=== PATIENT | female | born 1980 | race Caucasian/White ===

== ENCOUNTER 2016-10-27 02:44 | Emergency (ER) | payer MEDICAID, OTHER ==
[~2016-10-27] VITALS: Ht 162.6 cm; Wt 89.0 kg
[~2016-10-27 02:44] MED LIST: ADVA250A INH; ALBU8I INH; FIORTAB4 PO; LORTA5 PO; SULF-154 PO
[2016-10-27 02:46] VITALS: BP 175/100; PULSE 114; RESP 16; TEMP 99; O2SAT 98
[2016-10-27] MEDS ORDERED: CYMB30CA PO (03:09)
[2016-10-27] MEDS ORDERED: SODIUM CHLORIDE 0.9% FLUSH 10 ML FLUSH IVF PRN (04:15)
[2016-10-27] MEDS ORDERED: SODIUM CHLOR 0.9% 1000 ML INJ 1,000 ML IV ONE (05:00)
[2016-10-27] MEDS ORDERED: ONDANSETRON HCL 4 MG/2 ML VIAL IV PUSH ONE (05:00)
[2016-10-27 05:19] LABS: AUTOMATED NEUTROPHIL # 5.9 TH/MM3 (1.8-7.7); BASOPHIL # 0.1 TH/MM3 (0-0.2); BASOPHIL % 1.3 % (0.0-2.0); EOSINOPHIL # 0.3 TH/MM3 (0-0.4); EOSINOPHIL % 2.8 % (0.0-4.0); HEMATOCRIT 37.2 % (35.0-46.0); HEMO FLAGS DIFF FINAL; LYMPH % 32.3 % (9.0-44.0); LYMPHOCYTE # 3.2 TH/MM3 (1.0-4.8); MEAN CELL VOLUME 91.4 FL (80.0-100.0); MEAN CORPUSCULAR HEMOGLOBIN 31.6 PG (27.0-34.0); MEAN CORPUSCULAR HGB CONC 34.5 % (32.0-36.0); MONO % 5.1 % (0.0-8.0); NEUT % 58.5 % (16.0-70.0); PLATELET COUNT 432 TH/MM3 (150-450); RED BLOOD COUNT 4.07 MIL/MM3 (4.00-5.30); RED CELL DISTRIBUTION WIDTH 13.2 % (11.6-17.2)
--- NOTE | 2016-10-27 05:29 | PD ---
HPI Chief Complaint: Chest Pain Time Seen by Provider: 04:53 Travel History International Travel<30 days: No Contact w/Intl Traveler<30days: No Traveled to known affect area: No History of Present Illness HPI 35-year-old female with history of asthma, presents to the ER today for several days history of epigastric and substernal burning pains, nausea, vomiting, vomiting up blood, and diarrhea. She denies any fevers or any other symptoms. She does not know any exacerbating or alleviating factors. Patient is concerned that she may have ruptured her esophagus from the vomiting. Modifying Factors: None Associated Signs & Symptoms: Nausea, vomiting, vomiting blood, substernal epigastric and chest pains Risk Factors: None PFSH Past Medical History Asthma: Yes Depression: Yes Diminished Hearing: No Respiratory: Yes (Asthma) ?: Not LMP: 10/27/16 : 2 Para: 2 Past Surgical History Other Surgery: Yes (BILATERAL SALINE BREAST IMPLANTS) Social History Alcohol Use: No Tobacco Use: No Substance Use: No Allergies-Medications (Allergen,Severity, Reaction): Coded Allergies: No Known Allergies (Verified , 08/27/12) Reported Meds & Prescriptions Reported Meds & Active Scripts Active Reported Cymbalta DR (Duloxetine HCl) 30 Mg Capdr 30 Mg PO DAILY Review of Systems Except as stated in HPI: all other systems reviewed are Neg Physical Exam Narrative GENERAL: Well-developed middle age female patient currently in mild distress. Awake and oriented 3. SKIN: Focused skin assessment warm/dry. HEAD: Atraumatic. Normocephalic. EYES: Pupils equal and round. No scleral icterus. No injection or drainage. ENT: No nasal bleeding or discharge. Mucous membranes pink and moist. NECK: Trachea midline. No JVD. CARDIOVASCULAR: Regular rate and rhythm. No murmur appreciated. RESPIRATORY: No accessory muscle use. Clear to auscultation. Breath sounds equal bilaterally. GASTROINTESTINAL: Abdomen soft, mild epigastric tenderness without guarding or rebound, nondistended. Hepatic and splenic margins not palpable. MUSCULOSKELETAL: No obvious deformities. No clubbing. No cyanosis. No edema. NEUROLOGICAL: Awake and alert. No obvious cranial nerve deficits. Motor grossly within normal limits. Normal speech. PSYCHIATRIC: Appropriate mood and affect; insight and judgment normal. Data Data Last Documented VS Vital Signs Date Time Temp Pulse Resp B/P Pulse Ox O2 Delivery O2 Flow Rate FiO2 7/29/17 02:46 99.0 114 16 175/100 98 Room Air Orders Electrocardiogram (10/27/16 04:15) Ckmb (Isoenzyme) Profile (10/27/16 04:15) Complete Blood Count With Diff (10/27/16 04:15) Comprehensive Metabolic Panel (10/27/16 04:15) Magnesium (Mg) (10/27/16 04:15) Prothrombin Time / Inr (Pt) (10/27/16 04:15) Act Partial Throm Time (Ptt) (10/27/16 04:15) Troponin I (10/27/16 04:15) Chest, Single Ap (10/27/16 04:15) Ecg Monitoring (10/27/16 04:15) Bilateral Bp Monitoring (10/27/16 04:15) Iv Access Insert/Monitor (10/27/16 04:15) Oximetry (10/27/16 04:15) Oxygen Administration (10/27/16 04:15) Sodium Chloride 0.9% Flush (Ns Flush) (10/27/16 04:15) Ed Urine Pregnancytest Poc (10/27/16 04:15) Sodium Chlor 0.9% 1000 Ml Inj (Ns 1000 M (10/27/16 05:00) Ondansetron Inj (Zofran Inj) (10/27/16 05:00) Acetaminophen (Tylenol) (10/27/16 05:30) Famotidine Inj (Pepcid Inj) (10/27/16 05:30) CKMB (10/27/16 05:00) CKMB% (10/27/16 05:00) Labs Laboratory Tests Test 10/27/16 05:00 White Blood Count 10.0 TH/MM3 Red Blood Count 4.07 MIL/MM3 Hemoglobin 12.9 GM/DL Hematocrit 37.2 % Mean Corpuscular Volume 91.4 FL Mean Corpuscular Hemoglobin 31.6 PG Mean Corpuscular Hemoglobin 34.5 % Concent Red Cell Distribution Width 13.2 % Platelet Count 432 TH/MM3 Mean Platelet Volume 6.7 FL Neutrophils (%) (Auto) 58.5 % Lymphocytes (%) (Auto) 32.3 % Monocytes (%) (Auto) 5.1 % Eosinophils (%) (Auto) 2.8 % Basophils (%) (Auto) 1.3 % Neutrophils # (Auto) 5.9 TH/MM3 Lymphocytes # (Auto) 3.2 TH/MM3 Monocytes # (Auto) 0.5 TH/MM3 Eosinophils # (Auto) 0.3 TH/MM3 Basophils # (Auto) 0.1 TH/MM3 CBC Comment DIFF FINAL Differential Comment Prothrombin Time 10.8 SEC Prothromb Time International 1.0 RATIO Ratio Activated Partial 29.2 SEC Thromboplast Time Sodium Level 138 MEQ/L Potassium Level 3.1 MEQ/L Chloride Level 104 MEQ/L Carbon Dioxide Level 26.2 MEQ/L Anion Gap 8 MEQ/L Blood Urea Nitrogen 10 MG/DL Creatinine 0.73 MG/DL Estimat Glomerular Filtration 90 ML/MIN Rate Random Glucose 98 MG/DL Calcium Level 8.6 MG/DL Magnesium Level 2.0 MG/DL Total Bilirubin 0.4 MG/DL Aspartate Amino Transf 15 U/L (AST/SGOT) Alanine Aminotransferase 18 U/L (ALT/SGPT) Alkaline Phosphatase 63 U/L Total Creatine Kinase 192 U/L Creatine Kinase MB 3.2 NG/ML Troponin I LESS THAN 0.02 NG/ML Total Protein 7.3 GM/DL Albumin 3.6 GM/DL [facility] Medical Decision Making Medical Screen Exam Complete: Yes Emergency Medical Condition: Yes Medical Record Reviewed: Yes Interpretation(s) EKG shows NSR, no ST elevation or depression, and no arrhythmias. No significant T-wave inversions. Laboratory Tests Test 10/27/16 05:00 Mean Platelet Volume 6.7 FL (7.0-11.0) Potassium Level 3.1 MEQ/L (3.5-5.1) Troponin I LESS THAN 0.02 NG/ML (0.02-0.05) Last 24 hours Impressions Chest X-Ray 10/27/16 0415 Signed Impressions: Service Date/Time: Thursday, October 27, 2016 04:29 - CONCLUSION: Normal examination. Mir Galan MD Differential Diagnosis Nausea, vomiting, epigastric abdominal paingastritis versus gastric ulcer versus gastroenteritis versus pancreatitis versus dehydration versus metabolic issues Narrative Course Chest x-ray did not show any signs of free air. Lab work is unremarkable except for mild hypokalemia. Abdomen is fairly benign. I do not suspect an underlying cardiac cause in this case considering history. Symptoms are more indicative of a gastritis. Patient had been given nausea medication and Pepcid in the ER. On reevaluation at 6:15 AM, she is feeling much improved. At this point, I have talked to the patient regarding findings and have talked her as well but CAT scan of the abdomen pelvis as a possible further evaluation although considering her abdomen is fairly benign and I do not think that this is necessary at this time. Patient is agreeable to not doing a CAT scan at this point. I will have her follow-up with primary care physician. She should return for any worsening in symptoms. The plan has been discussed with her and she states understanding. Diagnosis Primary Impression: Gastritis Med/Other Pt SpecificInfo: Prescription(s) given Scripts Ondansetron Odt (Zofran Odt)4 Mg Tab4 Mg SL Q6HR PRN (Nausea/Vomiting) #7 TAB Ref 0 Prov:Cristhian Goode MD 10/27/16 Ranitidine (Zantac)150 Mg [id number] Mg PO BID #14 TAB Ref 0 Prov:Cristhian Goode MD 10/27/16 Disposition: 01 DISCHARGE HOME Condition: Stable Cristhian Goode MD Oct 27, 2016 05:29
[2016-10-27] MEDS ORDERED: FAMOTIDINE 20 MG/2 ML VIAL IV PUSH ONE (05:30)
[2016-10-27] MEDS ORDERED: ACETAMINOPHEN 500 MG CPLT PO ONE (05:30)
[2016-10-27 05:31] LABS: ANION GAP 8 MEQ/L (5-15); AST (GOT) 15 U/L (15-37); BICARBONATE 26.2 MEQ/L (21.0-32.0); BLOOD UREA NITROGEN 10 MG/DL (7-18); CHLORIDE 104 MEQ/L (98-107); GLOMERULAR FILTRATION RATE 90 ML/MIN (>89); POTASSIUM 3.1 MEQ/L (3.5-5.1); SODIUM (NA) 138 MEQ/L (136-145)
[2016-10-27 05:32] LABS: ALT (GPT) 18 U/L (10-53)
[2016-10-27 05:36] LABS: ALKALINE PHOSPHATASE 63 U/L (45-117); CREATINE KINASE 192 U/L (26-192); TOTAL BILIRUBIN ADULT 0.4 MG/DL (0.2-1.0)
--- NOTE | 2016-10-27 05:36 | RADRPT ---
EXAM DATE/TIME: 10/27/2016 04:29 [facility] COMPARISON: No previous studies available for comparison. INDICATIONS : Pt coughing up blood x 2 days. MEDICAL HISTORY : None. SURGICAL HISTORY : None. ENCOUNTER: Initial ACUITY: 2 days PAIN SCORE: 7/10 LOCATION: Bilateral chest FINDINGS: A single view of the chest demonstrates the lungs to be symmetrically aerated without evidence of mas s, infiltrate or effusion. The cardiomediastinal contours are unremarkable. Osseous structures are intact. CONCLUSION: Normal examination. Mir Galan MD on October 27, 2016 at 5:34 Board Certified Radiologist. This report was verified electronically.
[2016-10-27 05:41] LABS: APTT (PATIENT) 29.2 SEC (24.3-30.1); PROTHROMBIN TIME - PATIENT 10.8 SEC (9.8-11.6)
[2016-10-27 05:48] LABS: CKMB 3.2 NG/ML (0.5-3.6)
[2016-10-27] MEDS ORDERED: ZANT150T2 PO (06:20)
[2016-10-27] MEDS ORDERED: ZOFR4TAB3 SL (06:20)
[2016-10-27 06:25] VITALS: RESP 18; O2SAT 100
--- NOTE | 2016-10-27 19:20 | EKG ---
Date Performed: 10/27/2016 Time Performed: 04:51:46 PTAGE: 35 years EKG: Sinus rhythm NONSPECIFIC T-WAVE ABNORMALITY BORDERLINE ECG INTERPRETATION BASED ON A DEFAULT AGE OF 38 YEARS NO PREVIOUS TRACING DOCTOR: Matthew Thomas Interpretating Date/Time 10/27/2016 19:18:37
== END 2016-10-27 06:32 | disposition home or self-care (01) ==
LOC: NEPE 02:44
DX: K29.70 Gastritis, unspecified, without bleeding (principal); J45.909 Unspecified asthma, uncomplicated; F41.9 Anxiety disorder, unspecified
CPT/HCPCS: 71010; 80053; 82550; 82552; 83735; 84484; 84703; 85025; 85610; 85730; 93005; 96374; 96375; 99285; J2405; J7030